=== PATIENT | female | born 1975 | race Two or more races ===

== ENCOUNTER 2017-06-15 08:01 | Emergency (ER) | payer MEDICAID ==
[~2017-06-15] VITALS: Ht 160 cm; Wt 84.8 kg
[2017-06-15 08:49] LABS: Basophils # (auto) 0 uL; Basophils % (auto) 0.8 % (0.0-2.0); Eosinophils # (auto) 0.1 uL; Eosinophils % (auto) 2.1 % (0.0-7.0); Hematocrit 43.1 % (36.0-46.0); Hemoglobin 14.6 g/dL (12.2-16.2); Lymphocytes # (auto) 2.1 uL; Lymphocytes % (auto) 36.4 % (10.0-50.0); Mean Corpuscular Hemoglobin 28.8 pg (28.0-32.0); Mean Corpuscular Hgb Conc. 33.8 g/dL (32.0-36.0); Monocytes # (auto) 0.3 uL; Monocytes % (auto) 4.4 % (0.0-12.0); Neutrophils # (auto) 3.3 uL; Neutrophils % (auto) 56.3 % (37.0-80.0); Nucleated Red Blood Cells % 0.1 %; Platelet Count (auto) 224 10^3/uL (140-450); Red Blood Cells 5.07 10^6/uL (4.0-5.20); Red Cell Distribution Width 14.3 % (11.8-14.3); White Blood Cell 5.9 10^3/uL (4.4-10.8)
[2017-06-15 09:21] LABS: Urine Bacteria FEW /hpf (None Seen); Urine Blood Negative /uL (Negative); Urine Specific Gravity 1.023 (1.001-1.035); Urine WBC 16 /hpf (0 - 5)
[2017-06-15 09:38] LABS: Alanine Aminotransferase 34 U/L (13-56); Albumin 3.8 g/dL (3.4-5.0); Anion Gap 8 (5-15); Blood Alcohol < 3.0 mg/dL (0-5); Blood Urea Nitrogen 21 mg/dL (7-18); Calcium 9.2 mg/dL (8.5-10.1); Carbon Dioxide 27 mmol/L (21-32); Chloride 104 mmol/L (98-107); GFR African American 117 mL/min; GFR Non-African American 97 mL/min; Glucose 87 mg/dL (74-106); Potassium 4.4 mmol/L (3.5-5.1); Sodium 139 mmol/L (136-145)
[2017-06-15 09:44] LABS: Alkaline Phosphatase 76 U/L (45-117); Bilirubin, Total 0.3 mg/dL (0.2-1.0); Total Protein 7.6 g/dL (6.4-8.2)
[2017-06-15] MEDS ORDERED: SODIUM CHLORIDE 0.9% 1,000 ML IVB ONE (09:56)
[2017-06-15] MEDS ORDERED: LORazepam 2MG/ML-1ML VIAL IV ONE (10:00)
[2017-06-15] MEDS ORDERED: PANTOPRAZOLE 40 MG TAB PO ONE (10:00)
[2017-06-15 10:17] LABS: Aspartate Aminotransferase 18 U/L (15-37)
[2017-06-15 10:36] VITALS: BP 132/81
[2017-06-15 10:50] LABS: INR 0.95 (0.9-1.15); Partial Thromboplastin Time 23.8 sec (22.64-33.71); Prothrombin Time 10.4 sec (9.37-12.3)
[2017-06-15 11:40] LABS: Amphetamine Screen, Urine NEGATIVE (NEGATIVE); Barbiturate Scree,Urine NEGATIVE (NEGATIVE); Benzodiazephine Screen, Urine NEGATIVE (NEGATIVE); Cannabinoid Screen, Urine NEGATIVE (NEGATIVE); Cocaine Screen, Urine NEGATIVE (NEGATIVE); Opiate Scree,Urine NEGATIVE (NEGATIVE); Phencyclidine Screen, Urine NEGATIVE (NEGATIVE)
[2017-06-15] MEDS ORDERED: THIAMINE INJ 100 MG, MULTIPLE VITAMIN 10 ML, FOLIC ACID 1 MG, MAGNESIUM SULF SDV 50% 8 ... IV SCH ×5 (12:00)
[2017-06-15] MEDS ORDERED: cefTRIAXone 1GM/10ml IVPUSH 10 ML IV ONE (13:00)
== END 2017-06-15 15:35 | disposition home or self-care (01) ==
LOC: ER 08:01
DX: R07.89 Other chest pain (principal); I10 Essential (primary) hypertension; N39.0 Urinary tract infection, site not specified; F10.10 Alcohol abuse, uncomplicated; Z90.49 Acquired absence of other specified parts of digestive tract
CPT/HCPCS: 36415; 71046; 80053; 80307; 80320; 81001; 82140; 83735; 84443; 84484; 84702; 85025; 85610; 85730; 93005; 94761; 96361; 96365; 96366; 96375; 99285; J2060; J3411; J3475; J7030

== ENCOUNTER 2019-01-10 09:51 | Emergency (ER) | payer MEDICAID ==
[~2019-01-10] VITALS: Ht 154.9 cm; Wt 86.2 kg
[2019-01-10 09:59] VITALS: BP 132/87
[2019-01-10 10:38] LABS: Basophils # (auto) 0.1 uL; Basophils % (auto) 1.5 % (0.0-2.0); Eosinophils # (auto) 0.1 uL; Hematocrit 43.7 % (36.0-46.0); Hemoglobin 14.6 g/dL (12.2-16.2); Lymphocytes # (auto) 2.3 uL; Lymphocytes % (auto) 36.8 % (10.0-50.0); Mean Corpuscular Hemoglobin 28.8 pg (28.0-32.0); Mean Corpuscular Hgb Conc. 33.5 g/dL (32.0-36.0); Mean Corpuscular Volume 86.1 fL (80.0-100.0); Monocytes # (auto) 0.4 uL; Monocytes % (auto) 6.8 % (0.0-12.0); Neutrophils # (auto) 3.4 uL; Neutrophils % (auto) 53.9 % (37.0-80.0); Nucleated Red Blood Cells % 0.1 %; Platelet Count (auto) 216 10^3/uL (140-450); Red Blood Cells 5.08 10^6/uL (4.0-5.20); Red Cell Distribution Width 14.6 % (11.8-14.3); White Blood Cell 6.4 10^3/uL (4.4-10.8)
[2019-01-10 10:42] LABS: Urine Bacteria FEW /hpf (None Seen); Urine Blood Negative /uL (Negative); Urine Specific Gravity 1.022 (1.001-1.035); Urine WBC 21 /hpf (0 - 5)
[2019-01-10 10:52] LABS: Albumin 3.4 g/dL (3.4-5.0); Calcium 8.4 mg/dL (8.5-10.1); Potassium 3.9 mmol/L (3.5-5.1)
[2019-01-10 10:55] LABS: BUN/Creatinine Ratio 17.6; Bilirubin, Total 0.3 mg/dL (0.2-1.0); Total Protein 7.2 g/dL (6.4-8.2)
[2019-01-10] MEDS ORDERED: KETOROLAC TROMETH 60MG/2ML VIAL IM ONE (12:45)
== END 2019-01-10 13:44 | disposition home or self-care (01) ==
LOC: ER 09:51
DX: N20.0 Calculus of kidney (principal); N39.0 Urinary tract infection, site not specified; K57.30 Diverticulosis of large intestine without perforation or abscess without bleeding; J45.909 Unspecified asthma, uncomplicated; I10 Essential (primary) hypertension; Z90.49 Acquired absence of other specified parts of digestive tract
CPT/HCPCS: 36415; 74176; 80053; 81001; 84702; 85025; 96372; 99284; J1885

== ENCOUNTER 2020-04-24 15:10 | Emergency (ER) | payer MEDICAID ==
[~2020-04-24] VITALS: Ht 162.6 cm; Wt 88.5 kg
[2020-04-24] MEDS ORDERED: KETOROLAC TROMETH 60MG/2ML VIAL IM ONE (15:30)
[2020-04-24] MEDS ORDERED: methylPREDNISolone SOD SUCC 125 MG/2 ML VL IM ONE (15:30)
[2020-04-24 17:05] VITALS: BP 124/88
== END 2020-04-24 17:07 | disposition home or self-care (01) ==
LOC: ER 15:10
DX: R51.9 Headache, unspecified (principal); H10.32 Unspecified acute conjunctivitis, left eye; J45.909 Unspecified asthma, uncomplicated; I10 Essential (primary) hypertension; Z90.49 Acquired absence of other specified parts of digestive tract
CPT/HCPCS: 70450; 96372; 99284; J1885; J2930

== ENCOUNTER → 2021-08-05 14:18 | Emergency (ER) | payer MEDICAID ==
[~2021-08-05] VITALS: Ht 160 cm; Wt 92.5 kg
[~2021-08-05 14:18] MED LIST: CIPR-173 PO; LIDOCAINE 1%HCL (LOCAL ANESTH) 10 ML MDV ONE; METR500T PO; ONDA-144 PO; ONDANSETRON ODT 4 MG TAB PO ONE; OXYCODONE W/ ACETAMINOPHEN 5/325MG TABLET PO ONE; PERCOT PO; cefTRIAXone SOD 1,000 MG VL ONE; cefTRIAXone W LIDOCAINE 1 GM IM IM ONE
[2021-08-05 15:55] LABS: Basophils # (auto) 0.1 10 ^3/uL (0-0.2); Basophils % (auto) 1.9 % (0.0-2.0); Eosinophils # (auto) 0 10 ^3/uL (0-0.8); Eosinophils % (auto) 0.4 % (0.0-7.0); Hemoglobin 15.4 g/dL (12.2-16.2); Lymphocytes # (auto) 2.8 10 ^3/uL (0.4-5.4); Lymphocytes % (auto) 37.4 % (10.0-50.0); Mean Corpuscular Hemoglobin 28.5 pg (28.0-32.0); Mean Corpuscular Hgb Conc. 34.3 g/dL (32.0-36.0); Mean Corpuscular Volume 83.1 fL (80.0-100.0); Monocytes # (auto) 0.3 10 ^3/uL (0-1.3); Monocytes % (auto) 3.9 % (0.0-12.0); Neutrophils # (auto) 4.2 10 ^3/uL (1.6-8.6); Neutrophils % (auto) 56.4 % (37.0-80.0); Red Blood Cells 5.42 10^6/uL (4.0-5.20); Red Cell Distribution Width 14.8 % (11.8-14.3); White Blood Cell 7.4 10^3/uL (4.4-10.8)
[2021-08-05 16:07] LABS: Albumin 3.7 g/dL (3.4-5.0); Calcium 8.9 mg/dL (8.5-10.1)
[2021-08-05 16:10] LABS: Bilirubin, Total 0.4 mg/dL (0.2-1.0); Total Protein 7.9 g/dL (6.4-8.2)
[2021-08-05 16:20] LABS: Urine Bacteria MOD /hpf (None Seen); Urine Blood Negative /uL (Negative); Urine Mucus FEW (None Seen); Urine Specific Gravity 1.024 (1.001-1.035); Urine WBC 6 /hpf (0 - 5)
[2021-08-05 23:20] VITALS: BP 148/79
== END | disposition home or self-care (01) ==
LOC: ER 14:18
DX: K57.30 Diverticulosis of large intestine without perforation or abscess without bleeding (principal); J45.909 Unspecified asthma, uncomplicated; I10 Essential (primary) hypertension; Z90.49 Acquired absence of other specified parts of digestive tract
CPT/HCPCS: 36415; 74176; 80053; 81001; 85025; 96372; 99284; J0696; J2001; Q0162

== ENCOUNTER 2021-09-24 17:47 | Emergency (ER) | payer MEDICAID, OTHER ==
[~2021-09-24] VITALS: Ht 162.6 cm; Wt 88.5 kg
[~2021-09-24 17:47] MED LIST changes: -LIDOCAINE 1%HCL (LOCAL ANESTH) 10 ML MDV ONE; -ONDANSETRON ODT 4 MG TAB PO ONE; -OXYCODONE W/ ACETAMINOPHEN 5/325MG TABLET PO ONE; -cefTRIAXone SOD 1,000 MG VL ONE; -cefTRIAXone W LIDOCAINE 1 GM IM IM ONE
[2021-09-24 19:24] VITALS: BP 133/90
[2021-09-24] MEDS ORDERED: KETOROLAC TROMETH 30 MG/ML 1ML VIAL IV ONE (21:15)
[2021-09-24] MEDS ORDERED: CYCL-837 PO (21:17)
[2021-09-24] MEDS ORDERED: ACET1CAP14 PO (21:17)
== END 2021-09-24 23:52 | disposition home or self-care (01) ==
LOC: EDBD 17:47 → ER 17:47
DX: S06.0X0A Concussion without loss of consciousness, initial encounter (principal); S60.221A Contusion of right hand, initial encounter; M25.511 Pain in right shoulder; I10 Essential (primary) hypertension; J45.909 Unspecified asthma, uncomplicated; Z90.49 Acquired absence of other specified parts of digestive tract; Z79.2 Long term (current) use of antibiotics; Z79.899 Other long term (current) drug therapy; V89.2XXA Person injured in unspecified motor-vehicle accident, traffic, initial encounter; Y93.89 Activity, other specified; Y92.89 Other specified places as the place of occurrence of the external cause; Y99.8 Other external cause status
CPT/HCPCS: 70450; 72125; 73030; 73070; 73130; 96374; 99284; J1885

== ENCOUNTER 2024-05-24 19:56 | Emergency (ER) | payer MEDICAID, OTHER ==
[~2024-05-24] VITALS: Ht 162.6 cm; Wt 83.9 kg
[~2024-05-24 19:56] MED LIST changes: +ACET1CAP14 PO; +CYCL-837 PO
[2024-05-24 20:10] VITALS: BP 128/85; PULSE 107; RESP 18; O2SAT 97
== END 2024-05-24 23:32 | disposition left against medical advice (07) ==
LOC: ER 19:56
DX: M54.2 Cervicalgia (principal); Z53.21 Procedure and treatment not carried out due to patient leaving prior to being seen by health care provider

== ENCOUNTER 2025-02-13 15:22 | Emergency (ER) | payer MEDICAID, OTHER ==
[~2025-02-13] VITALS: Ht 160 cm; Wt 81.5 kg
[2025-02-13 15:24] VITALS: BP 126/87; RESP 18; TEMP 97.4; O2SAT 98
[2025-02-13 15:32] VITALS: PULSE 103
--- NOTE | 2025-02-13 19:11 | ECG ---
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
== END 2025-02-13 18:14 | disposition left against medical advice (07) ==
LOC: ER 15:22
DX: R42 Dizziness and giddiness (principal); Z53.21 Procedure and treatment not carried out due to patient leaving prior to being seen by health care provider
CPT/HCPCS: 93005